=== PATIENT | female | born 1930 | race Caucasian/White ===

== ENCOUNTER 2016-06-22 18:26 | Emergency (ER) | payer OTHER ==
[~2016-06-22] VITALS: Ht 160 cm; Wt 49.0 kg
[2016-06-22 18:35] VITALS: Ht 160 cm; Wt 49.0 kg
[2016-06-22] MEDS ORDERED: SOD CHLORIDE 0.9% 1,000 ML IV STA (19:47)
[2016-06-22] MEDS ORDERED: LORAZEPAM 2 MG INJ IV STA (19:47)
[2016-06-22 20:07] LABS: ADD SCAN DIFF NO
[2016-06-22 20:12] LABS: BASOPHIL # 0.1 10^3/ul (0.0-0.1); BASOPHILS % 0.3 % (0.0-2.0); EOSINOPHILS # 0.2 10^3/ul (0.0-0.5); EOSINOPHILS % 1.1 % (0.0-7.0); HEMATOCRIT 26.9 % (37.0-47.0); LYMPHOCYTES # 1.6 10^3/ul (0.8-2.9); LYMPHOCYTES % 10.5 % (15.0-51.0); MEAN CORPUSCULAR HEMOGLOBIN 22.7 pg (29.0-33.0); MEAN CORPUSCULAR HGB CONC 29.7 g/dl (32.0-37.0); MEAN CORPUSCULAR VOLUME 76.2 fl (82.0-101.0); MEAN PLATELET VOLUME 10.7 fl (7.4-10.4); MONOCYTE # 0.8 10^3/ul (0.3-0.9); MONOCYTES % 5.2 % (0.0-11.0); NEUTROPHIL # 12.4 10^3/ul (1.6-7.5); NEUTROPHILS % 82.3 % (39.0-77.0); PLATELET COUNT 417 10^3/UL (140-415); RED BLOOD COUNT 3.53 10^6/ul (4.20-5.40); RED CELL DISTRIBUTION WIDTH 16.8 % (11.5-14.5); WHITE BLOOD COUNT 15.1 10^3/ul (4.8-10.8)
[2016-06-22 20:24] LABS: INR 1.05; PROTIME 13.7 Sec (12.2-14.2); PT RATIO 1.1
[2016-06-22 20:25] LABS: PARTIAL THROMBOPLASTIN TIME 26.8 Sec (25.0-35.0)
[2016-06-22 20:29] LABS: ALBUMIN 3.4 g/dl (3.3-4.9); CHLORIDE 103 mmol/L (97-110); SODIUM 143 mmol/L (135-144)
[2016-06-22 20:30] LABS: POTASSIUM 4.2 mmol/L (3.5-5.1)
[2016-06-22 20:32] LABS: ALBUMIN/GLOBULIN RATIO 0.85; ALKALINE PHOSPHATASE 89 IU/L (42-121); ANION GAP 18 (8-16); ASPARTATE AMINO TRANSFERASE 15 IU/L (15-46); BILIRUBIN,INDIRECT 0.1 mg/dl (0-1.1); BILIRUBIN,TOTAL 0.1 mg/dl (0.2-1.3); BLOOD UREA NITROGEN 32 mg/dl (7-20); CARBON DIOXIDE 26 mmol/L (21-31); CREATININE 0.73 mg/dl (0.44-1.00); GLUCOSE 147 mg/dl (70-220); TOTAL PROTEIN 7.4 g/dl (6.1-8.1)
[2016-06-22 20:33] LABS: ALANINE AMINOTRANSFERASE 24 IU/L (13-69)
[2016-06-22 20:46] LABS: TROPONIN-I < 0.012 ng/ml (0.00-0.12)
--- NOTE | 2016-06-22 20:56 | RADRPT ---
PROCEDURE: XR shoulder. CLINICAL INDICATION: Pain following a fall TECHNIQUE: Three views of the right shoulder were performed. COMPARISON: None available. FINDINGS: There is diffuse decreased mineralization. No fracture or osseous lesion is identified. Mild degener ative narrowing of the acromioclavicular and glenohumeral joint is noted. The soft tissues are unrem arkable. RPTAT:HJJR IMPRESSION: Demineralization and mild osteoarthrosis without acute post traumatic abnormality of the right shoul joshua. Physician Lynda Date Time Electronically viewed and signed by Physician Lynda on 06/22/2016 20:56 /
--- NOTE | 2016-06-22 20:57 | RADRPT ---
PROCEDURE: XR Chest. CLINICAL INDICATION: Chest pain. Altered mental status TECHNIQUE: Portable AP upright view of the chest was obtained. COMPARISON: None. FINDINGS: The cardiomediastinal silhouette is mildly enlarged. Linear increased density within the right lowe r lobe may reflect scarring or subsegmental atelectasis, the left lung is grossly clear. There is n o evidence for pleural effusion, pneumothorax or pulmonary vascular congestion. Demineralization is noted without evidence of acute osseous abnormality. Calcification is present within the aorta. RPTAT:HJJR IMPRESSION: 1. Mild cardiac silhouette enlargement without evidence of congestive heart failure. 2. Linear subsegmental atelectasis or scarring in the right lower lobe. 3. Aortic atherosclerosis is present. Physician Lynda Date Time Electronically viewed and signed by Physician Lynda on 06/22/2016 20:57 JR/
--- NOTE | 2016-06-22 20:59 | RADRPT ---
PROCEDURE: CT Brain without contrast. CLINICAL INDICATION: Altered mental status TECHNIQUE: A CT of the brain was performed on a [employer] 64-slice CT scanner utilizing axial imaging from the skull base through the vertex without IV contrast. Multiplanar reformatted images were made. Images were reviewed on a PACS workstation. The CTDIvol is 79.84 mGy and the DLP is 979 .73 mGycm. One of the following 3 dose reduction techniques were used: Automated exposure control; adjustment of the mA and/or kV according to patient size; or use of iterative reconstruction technique. COMPARISON: None FINDINGS: There is no intracranial hemorrhage, mass effect, or midline shift. No extra-axial fluid collection is seen. The ventricles and sulci are age appropriate. Mild diffuse volume loss is present. Confl uent decreased attenuation is present in the bilateral subcortical white matter, bilateral centrum s emiovale and bilateral periventricular white matter. Moderate hydrocephalus is present and recommen d correlation with normal pressure hydrocephalus. No definite evidence for acute transependymal mayuri w of CSF is suggested and this may be secondary to central volume loss. Mild vascular calcification s are present of the intracranial internal carotid arteries. The visualized scalp and calvarium are remarkable for bilateral frontal craniotomy changes. The larry ateral orbits are normal. The bilateral paranasal sinuses, mastoid air cells and middle ear cavitie s are clear. IMPRESSION: 1. No evidence of acute intracranial hemorrhage, infarcts, or acute intracranial pathology. 2. Moderate hydrocephalus which may be secondary to central volume loss or normal pressure hydrocep halus. Consider follow-up imaging with MR CSF flow studies. 3. 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 4. Mild atherosclerotic vascular disease RPTAT: HDC .Katie Mcconnell MD, MD Date Time Electronically viewed and signed by .Katie Mcconnell MD, MD on 06/22/2016 20:59 .C/
[2016-06-22] MEDS ORDERED: [UNRECOGNIZED DRUG - CODE] PO (21:07)
--- NOTE | 2016-06-22 21:09 | RADRPT ---
PROCEDURE: CT Cervical Spine. CLINICAL INDICATION: Pain status post fall TECHNIQUE: A CT of the cervical spine was performed on a [employer] 64-slice CT scanner utilizing hi gh-resolution axial imaging from the skull base through the cervical thoracic junction. Sagittal, c oronal, and multiplanar reformatted images were made. CTDI 21.98 mGy and DLP 359.79 mGy-cm. One of the following 3 dose reduction techniques were used during this CT examination: automated exp osure control; adjustment of the mA and /or kV according to patient size; or use of iterative recons truciton technique COMPARISON: None available FINDINGS: Mild limitation secondary to patient positioning is noted. There is straightening of the normal lordosis of the cervical spine. No acute fractures or traumatic subluxations are present. Preservation of vertebral body heights are noted. The intervertebral di sk spaces demonstrate moderate to severe disk space height loss at the C3-4 through C6-7 levels. Th e posterior elements are intact and well aligned. The limited evaluation of the soft tissues of the neck are normal. The bilateral thyroid lobes and lung apices are clear. The specific axial levels are as follows: Occiput to C2: Imaged portions of the posterior fossa, skull base bilateral mastoid air cells and m iddle ear cavities are clear. C2-3: The intervertebral disk space is normal. The central canal, subarticular recess and neural f oramen are patent. Mild bilateral facet arthropathy is present C3-4: Moderate to severe disk space height loss is present. Mild broad-based disk osteophyte comple x is present. The central canal and bilateral subarticular recesses are patent. The neural foramen are patent. Mild bilateral facet arthropathy is present. C4-5: Moderate to severe degenerative endplate and disk changes are present at this level. The altaf tral canal, subarticular recess are patent. Bilateral uncovertebral osteophytes and facet arthropat hy is present. C5-6: Moderate to severe disk space height loss is present. Mild osteophytic bar and bulge is pres ent. The central canal, subarticular recess are patent. Mild bilateral neural foraminal stenosis i s present. Mild bilateral facet and uncovertebral osteoarthropathy is present. C6-7: Moderate to severe disk space height loss is present. A mild osteophytic bar and bulge is pr esent. The central canal bilateral subarticular recesses are patent. Moderate bilateral neural fora martha stenosis is present. Mild bilateral facet arthropathy and uncovertebral osteoarthropathy is pr esent. C7-T1: The intervertebral discs is normal. The central canal, subarticular recess, and neural fora men are patent. Mild bilateral facet arthropathy is present. IMPRESSION: 1. No acute fractures or traumatic subluxations. 2. Moderate to severe degenerative disk disease at C3-4 through C6-7 levels with multilevel broad-b ased disk osteophyte complexes. 3. Multilevel neural foraminal stenosis at the C5-6 and C6-7 levels. 4. Multilevel facet and uncovertebral osteoarthropathy as noted above. RPTAT: HDC .Katie Mcconnell MD, Date Time Electronically viewed and signed by .Katie Mcconnell MD, on 06/22/2016 21:09 .C/
[2016-06-22] MEDS ORDERED: LEVE100S PO (21:10)
[2016-06-22] MEDS ORDERED: ACET325T33 PO (21:10)
[2016-06-22] MEDS ORDERED: POLY17PO3 PO (21:11)
--- NOTE | 2016-06-22 22:35 | ERD ---
ER Documentation Chief Complaint Date/Time DATE: 06/22/16 TIME: 22:26 Chief Complaint sp fall fron wheelchair, bump forehead, headache HPI This is an 86-year-old female with a known history of dementia, wheelchair- bound secondary to a right hip fracture several years prior to arrival, and a DO NOT RESUSCITATE with comfort measures only that was at her assisted living facility when she had a witnessed mechanical fall from her wheelchair. Nursing staff indicated that the patient fell forward and hit her right shoulder and head onto a tiled surface. She did not lose consciousness. She was not complaining of a headache. But she did complain of mild right shoulder pain. Her granddaughter was called and brought her to the emergency department to be further evaluated. The granddaughter had indicated that the patient had not experienced any emesis and appeared to be at her baseline mental status but also the patient is a poor historian given that she has a history of dementia. ROS All systems reviewed and are negative except as per history of present illness. Medications Home Meds Reported Medications Polyethylene Glycol* (Polyethylene Glycol*) 17 Gm Powd.pack, 17 GM PO DAILY, # 30 PACKET 06/22/16 Acetaminophen* (Tylenol*) 325 Mg Tablet, 650 MG PO Q6H Y for MILD PAIN LEVEL 1-3 , TAB 06/22/16 Levetiracetam (LEVETIRACETAM) 100 Mg/1 Ml Solution, 2.5 ML PO Q12H, ML 06/22/16 Multivitamins W-Minerals (Apatate Forte) 237 Ml Liquid, 5 ML PO DAILY 06/22/16 Allergies Allergies: Coded Allergies: Penicillins (Verified Allergy, Unknown, 06/22/16) PMhx/Soc Hx Alcohol Use: Yes Hx Substance Use: No Hx Tobacco Use: No Smoking Status: Never smoker Physical Exam Vitals Vital Signs Date Time Temp Pulse Resp B/P Pulse Ox O2 Delivery O2 Flow Rate FiO2 06/22/16 20:11 88 14 145/101 96 Room Air 06/22/16 18:35 97.8 86 20 154/69 98 Physical Exam Constitutional:Well-developed. Well-nourished. HEENT:Normocephalic. Left mid frontal scalp hematoma. Pupils were equal round reactive to light. Moist mucous membranes.No tonsillar exudates. Neck: No nuchal rigidity. No lymphadenopathy. No posterior cervical spine tenderness or step-offs. Respiratory: Not using accessory muscles of respiration.Lungs were clear to auscultation bilaterally. No rhonchi. No rales. No wheezing. Cardiovascular: Regular rate regular rhythm.No murmurs. No rubs were appreciated.S1, S2 normal. Distal pulses are palpable 2+ bilaterally. GI: Abdomen was soft. Nontender. Non Distended. No pulsatile abdominal masses or bruits. No rebound. No guarding. Bowel sounds were present and normal. Muscle skeletal: Shortened right lower extremity compared to the left however the patient has a known chronic right hip fracture that the family indicated no surgical intervention was required. No tenderness or laxity with anterior posterior lateral compression of the hip. Patient has full range of motion of the left lower extremity. Tenderness over the right humeral head. Patient was able to AB duct both upper extremities past 90. No crepitus no flail chest no ecchymosis. Skin: No petechia, no purpura. No lesions on the palms or the soles of the feet. No maculopapular rash. NEURO: Patient was alert, awake the patient is not orientated to person place or time. She does not follow verbal command. This is her baseline according to her granddaughter. No facial droop. Gait not observed as patient does not ambulate Result Diagram: 06/22/16199906/22/161999 Results 24 hrs Laboratory Tests Test 06/22/16 20:00 White Blood Count 15.110^3/ul Red Blood Count 3.5310^6/ul Hemoglobin 8.0g/dl Hematocrit 26.9% Mean Corpuscular Volume 76.2fl Mean Corpuscular Hemoglobin 22.7pg Mean Corpuscular Hemoglobin Concent 29.7g/dl Red Cell Distribution Width 16.8% Platelet Count 25974^3/UL Mean Platelet Volume 10.7fl Neutrophils % 82.3% Lymphocytes % 10.5% Monocytes % 5.2% Eosinophils % 1.1% Basophils % 0.3% Nucleated Red Blood Cells % 0.0/100WBC Neutrophils # 12.410^3/ul Lymphocytes # 1.610^3/ul Monocytes # 0.810^3/ul Eosinophils # 0.210^3/ul Basophils # 0.110^3/ul Nucleated Red Blood Cells # 0.010^3/ul Prothrombin Time 13.7Sec Prothrombin Time Ratio 1.1 INR International Normalized Ratio 1.05 Activated Partial Thromboplast Time 26.8Sec Sodium Level 143mmol/L Potassium Level 4.2mmol/L Chloride Level 103mmol/L Carbon Dioxide Level 26mmol/L Anion Gap 18 Blood Urea Nitrogen 32mg/dl Creatinine 0.73mg/dl Glucose Level 147mg/dl Calcium Level 9.0mg/dl Total Bilirubin 0.1mg/dl Direct Bilirubin 0.00mg/dl Indirect Bilirubin 0.1mg/dl Aspartate Amino Transf (AST/SGOT) 15IU/L Alanine Aminotransferase (ALT/SGPT) 24IU/L Alkaline Phosphatase 89IU/L Troponin I < 0.012ng/ml Total Protein 7.4g/dl Albumin 3.4g/dl Globulin 4.00g/dl Albumin/Globulin Ratio 0.85 Current Medications Medications (Trade) Dose Ordered Sig/Alcira Route PRN Reason Start Time Stop Time Status Last Admin Dose Admin Lorazepam 1 mg 1 mg ONCE STAT IV 06/22/16 19:47 06/22/16 19:50 DC 06/22/16 20:09 Sodium Chloride (NS) 1,000 ml @ 1,000 mls/hr Q1H STAT IV 06/22/16 19:47 06/22/16 20:46 DC 06/22/16 20:09 Procedures/MDM This patient presented to the emergency department with a witnessed fall from her wheelchair. The patient had signs of closed head injury and therefore a CT scan of her head and cervical spine was ordered and reviewed by myself and indicated no acute fractures or dislocations. CT scan of the head reviewed by the radiologist indicated followin. No evidence of acute intracranial hemorrhage, infarcts, or acute intracranial pathology. 2. Moderate hydrocephalus which may be secondary to central volume loss or normal pressure hydrocephalus. Consider follow-up imaging with MR CSF flow studies. 3. 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 4. Mild atherosclerotic vascular disease These findings were relayed to the granddaughter however given that the patient is a DO NOT RESUSCITATE no surgical intervention or further workup was required emergently. The patient had a 3 view right shoulder radiograph for and reviewed by myself which showed no acute fractures but did indicate osteoarthritic changes. The patient had IV access was established by nursing staff and did receive 1 mg of Ativan in order to facilitate the radiographic imaging. Ancillary laboratory work indicated that the patient had a microcytic anemia. This was relayed to the granddaughter and she indicated she will have this followed up on an outpatient basis. The patient however did not have any hemoptysis hematemesis or melanotic stools. The patient was discharged back to her nursing care facility, driven by her granddaughter, in fair condition. They were instructed to return to the emergency department at any time if there was any worsening of their condition. The patient stated they would follow up with their PCP in the next 24-48 hours to initiate a suitable medication regimen under the care of their PCP as well as to allow their PCP to monitor any drug reactions. The patient was discharged home with prescriptions after they gave informed consent to the new medication. They were also fully informed by myself on the adverse effects and adverse drug interactions in order to provide adequate safeguards to prevent possible adverse reactions to medications. Departure Diagnosis: Primary Impression: Head contusion Encounter type: initial encounter Laterality: unspecified laterality Additional Impressions: Anemia Anemia type: unspecified type Qualified Code: D64.9 - Anemia, unspecified type Fall from wheelchair Encounter type: initial encounter Qualified Code: W05.0XXA - Fall from wheelchair, initial encounter Sprain of shoulder, right Encounter type: initial encounter Shoulder sprain type: unspecified sprain Qualified Code: S43.401A - Sprain of right shoulder, unspecified shoulder sprain type, initial encounter Condition: Fair Patient Instructions: Anemia, Type Not Specified (Adult), Fall Prevention LARISSA GOTTLIEB June 22, 2016 22:35
[2016-06-22] MEDS ORDERED: FER325 PO (22:37)
[2016-06-22 22:41] VITALS: BP 142/72; PULSE 82; RESP 19; TEMP 98
== END 2016-06-22 22:43 | disposition home or self-care (01) ==
LOC: E/R 18:26
DX: S00.03XA Contusion of scalp, initial encounter (principal); R40.2352 Coma scale, best motor response, localizes pain, at arrival to emergency department; R40.2242 Coma scale, best verbal response, confused conversation, at arrival to emergency department; D64.9 Anemia, unspecified; S43.401A Unspecified sprain of right shoulder joint, initial encounter; R07.9 Chest pain, unspecified; R40.2142 Coma scale, eyes open, spontaneous, at arrival to emergency department; W05.0XXA Fall from non-moving wheelchair, initial encounter; Y92.9 Unspecified place or not applicable
CPT/HCPCS: 70450; 71010; 72125; 73030; 80053; 84484; 85025; 85610; 85730; 93005; 96374; 99285; J2060; J7030